=== PATIENT | female | born 1975 | race Caucasian/White ===

== ENCOUNTER 2020-11-14 15:42 | Emergency (ER) | payer SELFPAY ==
[~2020-11-14] VITALS: Ht 180.3 cm; Wt 142.9 kg
[2020-11-14 16:10] LABS: BASOPHILS ABSOLUTE AUTO 0.15 K/mm3 (0.00-0.23); BASOPHILS PERCENT AUTO 1 % (0-2); EOSINOPHILS ABSOLUTE AUTO 0.31 K/mm3 (0.00-0.68); EOSINOPHILS PERCENT AUTO 2 % (0-6); Hematocrit 49.3 % (33.0-51.0); Hemoglobin 17.3 g/dL (11.5-16.0); IMMATURE GRAN ABSOLUTE AUTO 0.08 K/mm3 (0.00-0.10); IMMATURE GRAN PERCENT AUTO 0 % (0-1); LYMPHOCYTES ABSOLUTE AUTO 3.95 K/mm3 (0.84-5.20); LYMPHOCYTES PERCENT AUTO 22 % (21-46); MONOCYTES ABSOLUTE AUTO 0.91 K/mm3 (0.16-1.47); MONOCYTES PERCENT AUTO 5 % (4-13); Mean Corpuscular HGB 32.6 pg (26.0-34.0); Mean Corpuscular HGB Conc 35.1 g/dL (31.5-36.5); Mean Corpuscular Volume 93 fL (80-100); Mean Platelet Volume 9.6 fL (9.1-12.4); NEUTROPHILS ABSOLUTE AUTO 12.76 K/mm3 (1.96-9.15); NEUTROPHILS PERCENT AUTO 70 % (41-73); Platelet Count 414 K/mm3 (150-400); RDW Coefficient Variation 13.1 % (11.7-14.2); RDW Standard Deviation 44.7 fL (35.1-46.3); Red Blood Cell Count 5.31 M/mm3 (3.80-5.20); White Blood Cell Count 18.16 K/mm3 (4.00-11.30)
[2020-11-14 16:34] LABS: Alanine Aminotransfer (ALT/SGP 80 U/L (12-78); Albumin, Blood 3.6 g/dL (3.4-5.0); Albumin/Globulin Ratio 0.8 (0.8-1.8); Alk Phos 140 U/L (50-136); Anion Gap 6 mmol/L (6-16); Aspartate Aminotrans (AST/SGOT 39 U/L (12-37); Bilirubin, Total 0.6 mg/dL (0.1-1.0); Blood Urea Nitrogen 11 mg/dL (8-24); Bun/Creatinine Ratio 14.9 (12.0-20.0); CO2, Blood 28 mmol/L (21-32); Calcium, Blood 9.9 mg/dL (8.5-10.1); Chloride, Blood 102 mmol/L (98-108); Creatinine, Blood 0.74 mg/dL (0.40-1.00); Globulin, Blood 4.6 g/dL (2.2-4.0); Glomerular Filtration Rate >60 (60-); Glucose, Blood 248 mg/dL (70-99); Potassium, Blood 3.7 mmol/L (3.5-5.5); Sodium, Blood 136 mmol/L (136-145); Total Protein, Blood 8.2 g/dL (6.4-8.2)
[2020-11-14] MEDS ORDERED: Zofran8 MG PO (22:44)
== END 2020-11-14 23:46 | disposition home or self-care (01) ==
LOC: ER 15:42
PROVIDERS: Emergency Medicine
DX: K29.70 Gastritis, unspecified, without bleeding (principal); K76.0 Fatty (change of) liver, not elsewhere classified; F17.200 Nicotine dependence, unspecified, uncomplicated
CPT/HCPCS: 74177; 80053; 83690; 85025; 93005; 93010; 96374-59; 96375; 99284-25; A9270; J2270; J2405; J2550; J7030; Q9967

== ENCOUNTER 2021-01-13 11:51 | Emergency (ER) | payer OTHER ==
[~2021-01-13] VITALS: Ht 180.3 cm; Wt 131.5 kg
[~2021-01-13 11:51] MED LIST: Zofran8 MG PO
[2021-01-13] MEDS ORDERED: OXYC5 PO (12:40)
[2021-01-13] MEDS ORDERED: Colace100 MG PO (12:40)
[2021-01-13 12:46] LABS: Source, Urine Clean Catch
[2021-01-13 12:57] LABS: Hematocrit 46.4 % (33.0-51.0); Hemoglobin 15.5 g/dL (11.5-16.0); Mean Corpuscular HGB 31.6 pg (26.0-34.0); Mean Corpuscular HGB Conc 33.4 g/dL (31.5-36.5); Mean Corpuscular Volume 95 fL (80-100); Mean Platelet Volume 9.4 fL (9.1-12.4); Platelet Count 491 K/mm3 (150-400); RDW Coefficient Variation 13.3 % (11.7-14.2); RDW Standard Deviation 46.8 fL (35.1-46.3); White Blood Cell Count 17.38 K/mm3 (4.00-11.30)
[2021-01-13 13:01] LABS: Appearance, Urine Hazy (Clear); Bilirubin, Urine Neg (Neg); Blood, Urine 1+ (Neg); Color, Urine Yellow (P-Yellow); Glucose Qualitative, Urine Neg (Neg); Ketones, Urine Neg (Neg); Leukocyte Esterase, Urine 1+ (Neg); Nitrite, Urine Neg (Neg); Protein, Urine 2+ (Neg); Urobilinogen, Urine NORM (Normal)
[2021-01-13 13:10] LABS: Alanine Aminotransfer (ALT/SGP 85 U/L (12-78); Albumin, Blood 3.1 g/dL (3.4-5.0); Albumin/Globulin Ratio 0.6 (0.8-1.8); Alk Phos 143 U/L (50-136); Anion Gap 7 mmol/L (6-16); Aspartate Aminotrans (AST/SGOT 62 U/L (12-37); Bilirubin, Total 0.4 mg/dL (0.1-1.0); Blood Urea Nitrogen 11 mg/dL (8-24); Bun/Creatinine Ratio 14.6 (12.0-20.0); CO2, Blood 24 mmol/L (21-32); Chloride, Blood 104 mmol/L (98-108); Creatinine, Blood 0.75 mg/dL (0.40-1.00); Globulin, Blood 4.8 g/dL (2.2-4.0); Glomerular Filtration Rate >60 (60-); Glucose, Blood 179 mg/dL (70-99); Potassium, Blood 3.7 mmol/L (3.5-5.5); Sodium, Blood 135 mmol/L (136-145); Total Protein, Blood 7.9 g/dL (6.4-8.2)
[2021-01-13 13:19] LABS: Bacteria Mod /hpf; Mucus Light (0-Heavy); Squamous Epithelial Cells Many /hpf (Few)
[2021-01-13 13:24] LABS: BASOPHILS ABSOLUTE MAN 0.17 K/mm3 (0.00-0.23); BASOPHILS PERCENT MAN 1 % (0-2); EOSINOPHILS ABSOLUTE MAN 1.21 K/mm3 (0.00-0.68); EOSINOPHILS PERCENT MAN 7 % (0-6); LYMPHOCYTES PERCENT MAN 34 % (21-46); MONOCYTES ABSOLUTE MAN 1.73 K/mm3 (0.16-1.47); MONOCYTES PERCENT MAN 10 % (4-13); NEUTROPHILS ABSOLUTE MAN 8.34 K/mm3 (1.96-9.15); SEG NEUTROPHILS PERCENT MAN 48 % (41-73); TOTAL CELLS COUNTED 100
[2021-01-13] MEDS ORDERED: ONDA4ODT MM (14:01)
[2021-01-19] MEDS ORDERED: PANT40 PO (19:27)
[2021-01-20] MEDS ORDERED: AMOCLA875 PO (13:07)
== END 2021-01-13 14:29 | disposition home or self-care (01) ==
LOC: ER 11:51
PROVIDERS: Physician Assistant
DX: R10.9 Unspecified abdominal pain (principal); R10.814 Left lower quadrant abdominal tenderness; R10.813 Right lower quadrant abdominal tenderness; K57.92 Diverticulitis of intestine, part unspecified, without perforation or abscess without bleeding; D72.829 Elevated white blood cell count, unspecified; Z91.040 Latex allergy status
CPT/HCPCS: 36415; 74177; 80053; 81001; 83690; 85025; 87086; 99284-25; Q9967

== ENCOUNTER 2022-10-07 13:12 | Emergency (ER) | payer BC ==
[~2022-10-07] VITALS: Ht 180.3 cm; Wt 136.1 kg
[~2022-10-07 13:12] MED LIST changes: +AMOCLA875 PO; +Colace100 MG PO; +METO10 PO; +ONDA4ODT MM; +OXYC5 PO; +PANT40 PO
[2022-10-07 13:59] LABS: BASOPHILS ABSOLUTE AUTO 0.22 K/mm3 (0.00-0.23); BASOPHILS PERCENT AUTO 1 % (0-2); EOSINOPHILS ABSOLUTE AUTO 0.28 K/mm3 (0.00-0.68); EOSINOPHILS PERCENT AUTO 1 % (0-6); Hematocrit 49.7 % (33.0-51.0); Hemoglobin 17.4 g/dL (11.5-16.0); IMMATURE GRAN ABSOLUTE AUTO 0.13 K/mm3 (0.00-0.10); IMMATURE GRAN PERCENT AUTO 1 % (0-1); LYMPHOCYTES ABSOLUTE AUTO 3.97 K/mm3 (0.84-5.20); LYMPHOCYTES PERCENT AUTO 18 % (21-46); MONOCYTES ABSOLUTE AUTO 0.68 K/mm3 (0.16-1.47); MONOCYTES PERCENT AUTO 3 % (4-13); Mean Corpuscular HGB 32.3 pg (26.0-34.0); Mean Corpuscular Volume 92 fL (80-100); Mean Platelet Volume 9.5 fL (9.1-12.4); NEUTROPHILS ABSOLUTE AUTO 16.84 K/mm3 (1.96-9.15); NEUTROPHILS PERCENT AUTO 76 % (41-73); Platelet Count 434 K/mm3 (150-400); RDW Standard Deviation 43.7 fL (35.1-46.3); Red Blood Cell Count 5.39 M/mm3 (3.80-5.20); White Blood Cell Count 22.12 K/mm3 (4.00-11.30)
[2022-10-07 14:16] LABS: Albumin, Blood 3.9 g/dL (3.4-5.0); Albumin/Globulin Ratio 0.9 (0.8-1.8); Bilirubin, Total 0.5 mg/dL (0.1-1.0); Bun/Creatinine Ratio 15.2 (12.0-20.0); Calcium, Blood 9.7 mg/dL (8.5-10.1); Creatinine, Blood 0.79 mg/dL (0.40-1.00); Globulin, Blood 4.2 g/dL (2.2-4.0); Potassium, Blood 4.2 mmol/L (3.5-5.5); Total Protein, Blood 8.1 g/dL (6.4-8.2)
[2022-10-07 16:49] LABS: Source, Urine Clean Catch
[2022-10-07 16:54] LABS: Appearance, Urine Clear (Clear); Bilirubin, Urine Neg (Neg); Blood, Urine 1+ (Neg); Color, Urine Yellow (P-Yellow); Glucose Qualitative, Urine 4+ (Neg); Ketones, Urine 4+ (Neg); Leukocyte Esterase, Urine Neg (Neg); Nitrite, Urine Neg (Neg); Protein, Urine 3+ (Neg); Specific Gravity, Urine 1.015 (1.003-1.022); Urobilinogen, Urine NORM (Normal)
[2022-10-07 17:14] LABS: Bacteria Few /hpf; Red Blood Cells, Urine 0-2 /hpf (0-2); Squamous Epithelial Cells Few /hpf (Few); White Blood Cells, Urine 0-2 /hpf (0-5)
[2022-10-07 19:00] VITALS: BP 173/114
[2022-10-07] MEDS ORDERED: PROC5 PO (19:35)
== END 2022-10-07 19:47 | disposition home or self-care (01) ==
LOC: ER 13:12
PROVIDERS: Student in an Organized Health Care Education/Training Program
DX: R10.9 Unspecified abdominal pain (principal); R11.2 Nausea with vomiting, unspecified; D72.829 Elevated white blood cell count, unspecified; Z91.040 Latex allergy status; Z87.891 Personal history of nicotine dependence
CPT/HCPCS: 71045; 74177; 80053; 81001; 81025; 83690; 85025; 93005; 93010; A9270; J0780; J1790; J1885; J2405; J2550; J3010; J7030; Q9967

== ENCOUNTER 2023-02-10 19:32 | Observation (INO) | payer BC ==
[~2023-02-10] VITALS: Ht 180.3 cm; Wt 147.5 kg
[~2023-02-10 19:32] MED LIST changes: +PROC5 PO
[2023-02-10 20:11] LABS: BASOPHILS ABSOLUTE AUTO 0.19 K/mm3 (0.00-0.23); BASOPHILS PERCENT AUTO 1 % (0-2); EOSINOPHILS PERCENT AUTO 4 % (0-6); Hematocrit 46.5 % (33.0-51.0); Hemoglobin 16.2 g/dL (11.5-16.0); IMMATURE GRAN ABSOLUTE AUTO 0.13 K/mm3 (0.00-0.10); IMMATURE GRAN PERCENT AUTO 1 % (0-1); LYMPHOCYTES ABSOLUTE AUTO 3.05 K/mm3 (0.84-5.20); LYMPHOCYTES PERCENT AUTO 18 % (21-46); MONOCYTES PERCENT AUTO 6 % (4-13); Mean Corpuscular HGB 32.3 pg (26.0-34.0); Mean Corpuscular HGB Conc 34.8 g/dL (31.5-36.5); Mean Corpuscular Volume 93 fL (80-100); Mean Platelet Volume 9.4 fL (9.1-12.4); NEUTROPHILS PERCENT AUTO 70 % (41-73); Platelet Count 441 K/mm3 (150-400); RDW Coefficient Variation 13.3 % (11.7-14.2); RDW Standard Deviation 44.9 fL (35.1-46.3); Red Blood Cell Count 5.02 M/mm3 (3.80-5.20); White Blood Cell Count 16.77 K/mm3 (4.00-11.30)
[2023-02-10 20:26] LABS: Albumin, Blood 3.4 g/dL (3.4-5.0); Albumin/Globulin Ratio 0.8 (0.8-1.8); Bilirubin, Total 0.3 mg/dL (0.1-1.0); Bun/Creatinine Ratio 13.2 (12.0-20.0); Calcium, Blood 8.6 mg/dL (8.5-10.1); Creatinine, Blood 0.83 mg/dL (0.40-1.00); Potassium, Blood 3.9 mmol/L (3.5-5.5); Total Protein, Blood 7.4 g/dL (6.4-8.2)
[2023-02-11 00:11] LABS: Anti-Xa UFH, PHA Monitoring <0.10 IU/mL; International Normalized Ratio 1.04; Prothrombin Time Results 10.9 Sec (9.7-11.5)
[2023-02-11] MEDS ORDERED: OMEP20ER PO (02:04)
[2023-02-11 02:17] VITALS: BP 111/69
--- NOTE | 2023-02-11 03:05 | NUR ---
NURSE NOTE LAB CALLED AT 0218 WITH TROPONIN RESULT OF 700. NOTIFIED AT 0306 AFTER AWAITING RETURN CALL. CONTINUE HEPARIN DRIP. PATIENT IS NPO FOR A STRESS TEST IN THE AM. PATIENT ALSO C/O MILD PRESSURE IN HER LEFT CHEST UNDERNEATH HER BREAST AREA WITH NO RADIATION. INFORMED AND AWARE. DR. STAHL NOTIFIED OF ABOVE.
[2023-02-11 04:29] LABS: Hemoglobin 14.6 g/dL (11.5-16.0); Mean Corpuscular HGB 32.2 pg (26.0-34.0); Mean Corpuscular HGB Conc 34.8 g/dL (31.5-36.5); Mean Corpuscular Volume 93 fL (80-100); Mean Platelet Volume 9.5 fL (9.1-12.4); Platelet Count 394 K/mm3 (150-400); RDW Coefficient Variation 13.4 % (11.7-14.2); RDW Standard Deviation 45.3 fL (35.1-46.3); Red Blood Cell Count 4.53 M/mm3 (3.80-5.20); White Blood Cell Count 20.35 K/mm3 (4.00-11.30)
[2023-02-11 05:10] LABS: Albumin, Blood 3.1 g/dL (3.4-5.0); Albumin/Globulin Ratio 0.9 (0.8-1.8); Bilirubin, Total 0.5 mg/dL (0.1-1.0); Bun/Creatinine Ratio 15.4 (12.0-20.0); Calcium, Blood 7.8 mg/dL (8.5-10.1); Creatinine, Blood 0.72 mg/dL (0.40-1.00); Globulin, Blood 3.3 g/dL (2.2-4.0); Potassium, Blood 3.8 mmol/L (3.5-5.5); Total Protein, Blood 6.4 g/dL (6.4-8.2)
[2023-02-11 05:24] LABS: CHOL/HDL RATIO 4.9; Cholesterol 178 mg/dL (50-200); HDL Cholesterol 36 mg/dL (>39); LDL/HDL RATIO 2.7; Low Density Lipoprotein Chol 98 mg/dL (0-110); Triglycerides 219 mg/dL (30-160); Very Low Density Lipoprot Chol 43 mg/dL (6-32)
[2023-02-11 05:38] LABS: BASOPHILS PERCENT MAN 0 % (0-2); EOSINOPHILS ABSOLUTE MAN 1.01 K/mm3 (0.00-0.68); EOSINOPHILS PERCENT MAN 5 % (0-6); LYMPHOCYTES % ATYPICAL MANUAL 1 % (0-0); LYMPHOCYTES ABSOLUTE MAN 7.52 K/mm3 (0.84-5.20); LYMPHOCYTES PERCENT MAN 36 % (21-46); MONOCYTES PERCENT MAN 2 % (4-13); NEUTROPHILS ABSOLUTE MAN 11.39 K/mm3 (1.96-9.15); SEG NEUTROPHILS PERCENT MAN 56 % (41-73); TOTAL CELLS COUNTED 100
--- NOTE | 2023-02-11 05:52 | NUR ---
NURSE NOTE: TROPONIN CAME BACK AT 988. DR. STAHL NOTIFIED AT 0528. NO NEW ORDERS.
--- NOTE | 2023-02-11 07:18 | NUR ---
NOC SHIFT SUMMARY: ADMITTED WTIH CHEST PAIN. TROPONIN TRENDING UPWARDS. HEPARIN DRIP IN PLACE. INDEPENENT. STRESS TEST AND ECHOCARDIOGRAM ORDERED FOR TODAY.
[2023-02-11 07:26] VITALS: BP 114/58
--- NOTE | 2023-02-11 12:32 | NUR ---
TRANSFER NOTE PT TAKEN TO THE [facility] FOR AN ANGIOGRAM, REPORT GIVEN TO PCU NURSE. HER TOOK HER BELONGINGS DOWN TO THE ROOM.
[2023-02-11 13:25] VITALS: BP 151/87
[2023-02-11 13:45] VITALS: BP 127/83
[2023-02-11 14:00] VITALS: BP 126/89
[2023-02-11] MEDS ORDERED: Nicoderm Cq1 EAC1 TOP (17:49)
[2023-02-11] MEDS ORDERED: ATOR40TA PO (17:49)
[2023-02-11] MEDS ORDERED: ASPI81CH PO (17:49)
--- NOTE | 2023-02-11 18:55 | NUR ---
TR BAND FULLY RECOVERED, DRESSING PLACED, ARM BOARD RETURNED. THERE WAS NO ACTIVE BLEEDING NOTED FROM SITE AT ANY TIME. FULL ROM OF FINGER TO RT HAND, SKIN PWD AND INTACT ASIDE FROM PUNCTURE SITE OF RADIAL ACCESS. SPO2 99% ON RIGHT HAND. DENIES PAIN NOW AFTER DEFLATION OF TR BAND BEGAN. PT WAS D/C HOME SHE EXPRESSED UNDERSTANDING OF DC TEACHING AND DENIES FURHTER NEEDS. IV REMOVED AND PRESSURE DRESSED.
[2023-02-15 08:09] LABS: HEMOGLOBIN A1C 7.3 % (4.8-5.6)
== END 2023-02-11 18:45 | disposition home or self-care (01) ==
LOC: ER 19:32 → MEDS 19:33 → PCU 02-11 13:04
PROVIDERS: Emergency Medicine; ADMIT Student in an Organized Health Care Education/Training Program
DX: I21.4 Non-ST elevation (NSTEMI) myocardial infarction (principal); E66.9 Obesity, unspecified; F17.210 Nicotine dependence, cigarettes, uncomplicated; Z91.040 Latex allergy status
CPT/HCPCS: 36415; 71046; 76937; 80053; 80061; 83036; 83690; 83735; 83880; 84443; 84484; 85025; 85520; 85610; 93005; 93010; 93306; 93458; 96365; 96366; 99152; 99285-25; A9270; C1769; C1887; C1894; G0378; J1644; J1650; J2250; J2405; J3010; J7030; J7050; Q9967

== ENCOUNTER 2023-11-22 10:39 | Emergency (ER) | payer BC ==
[~2023-11-22] VITALS: Ht 180.3 cm; Wt 142.9 kg
[~2023-11-22 10:39] MED LIST changes: +ASPI81CH PO; +ATOR40TA PO; +Nicoderm Cq1 EAC1 TOP; +OMEP20ER PO
[2023-11-22 10:43] VITALS: BP 134/113
[2023-11-22] MEDS ORDERED: Ondansetron HCl 2 MG / ML 2ML Vial IV ONE (10:45)
[2023-11-22 11:06] LABS: BASOPHILS ABSOLUTE AUTO 0.17 K/mm3 (0.00-0.23); BASOPHILS PERCENT AUTO 1 % (0-2); EOSINOPHILS ABSOLUTE AUTO 0.36 K/mm3 (0.00-0.68); EOSINOPHILS PERCENT AUTO 2 % (0-6); Hematocrit 45.5 % (33.0-51.0); Hemoglobin 15.6 g/dL (11.5-16.0); IMMATURE GRAN ABSOLUTE AUTO 0.06 K/mm3 (0.00-0.10); IMMATURE GRAN PERCENT AUTO 0 % (0-1); LYMPHOCYTES ABSOLUTE AUTO 3.35 K/mm3 (0.84-5.20); LYMPHOCYTES PERCENT AUTO 21 % (21-46); MONOCYTES ABSOLUTE AUTO 0.41 K/mm3 (0.16-1.47); MONOCYTES PERCENT AUTO 3 % (4-13); Mean Corpuscular HGB 32.1 pg (26.0-34.0); Mean Corpuscular HGB Conc 34.3 g/dL (31.5-36.5); Mean Corpuscular Volume 94 fL (80-100); Mean Platelet Volume 9.6 fL (9.1-12.4); NEUTROPHILS ABSOLUTE AUTO 11.74 K/mm3 (1.96-9.15); NEUTROPHILS PERCENT AUTO 73 % (41-73); Platelet Count 374 K/mm3 (150-400); RDW Coefficient Variation 13.3 % (11.7-14.2); RDW Standard Deviation 45.4 fL (35.1-46.3); Red Blood Cell Count 4.86 M/mm3 (3.80-5.20); White Blood Cell Count 16.09 K/mm3 (4.00-11.30)
[2023-11-22 11:27] LABS: Albumin, Blood 3.8 g/dL (3.4-5.0); Bilirubin, Total 0.6 mg/dL (0.1-1.0); Bun/Creatinine Ratio 24.1 (12.0-20.0); Calcium, Blood 9.1 mg/dL (8.5-10.1); Creatinine, Blood 0.79 mg/dL (0.40-1.00); Potassium, Blood 4.1 mmol/L (3.5-5.5); Total Protein, Blood 7.8 g/dL (6.4-8.2)
== END 2023-11-22 13:20 | disposition left against medical advice (07) ==
LOC: ER 10:39
PROVIDERS: Physician Assistant
DX: R10.9 Unspecified abdominal pain (principal); R07.9 Chest pain, unspecified; Z79.82 Long term (current) use of aspirin; Z79.899 Other long term (current) drug therapy; Z53.21 Procedure and treatment not carried out due to patient leaving prior to being seen by health care provider
CPT/HCPCS: 71046; 80053; 83690; 84484; 85025; 93005; 93010; 96374; 99282-25; J2405

== ENCOUNTER → 2024-09-19 | Outpatient (CLI) | payer BC | LOC: LAB 14:51 → LAB SHORT 14:51 | DX: D06.7 Carcinoma in situ of other parts of cervix (principal) | CPT/HCPCS: 88305 ==

== ENCOUNTER 2025-04-03 06:14 | Day surgery (SDC) | payer BC ==
[2025-04-03] VITALS (16 sets, daily range): BP systolic 110–148; BP diastolic 61–97
[~2025-04-03] VITALS: Ht 180.3 cm; Wt 149.6 kg
[~2025-04-03 06:14] MED LIST changes: +ALPR1 PO; +ATEN25 PO; +DOTTI1 EAC6 TD; +Glucophage 850850 MG PO; +IBUP800 PO; +LANS30EC PO; +PROG100 PO; +Prilosec Otc20 MG PO
[2025-04-03] MEDS ORDERED: CeFAZolin Sodium 3,000 MG in NS 100 ML IV SCH (06:15)
[2025-04-03] MEDS ORDERED: FentaNYL Citrate 50 MCG/ML 2 ML Injection ONE ×3 (06:50→09:37)
[2025-04-03] MEDS ORDERED: Midazolam HCl 1MG / ML 2ML Vial ONE (06:50)
[2025-04-03] MEDS ORDERED: CeFAZolin Sodium 3,000 MG VIAL ONE (07:07)
[2025-04-03] MEDS ORDERED: Bupivacaine 0.5% W/EPI 1:200000 SDV 30 ML Vial ONE (07:11)
--- NOTE | 2025-04-03 07:14 | NUR ---
History, Chart, Medications and Allergies reviewed before start of procedure. Lungs clear T/O to Auscultation. Patient confirms NPO status and agrees with scheduled surgery. Patient reports completing Chlorhexadine shower X2 prior to admission to hospital. Pre-Op teaching done. Pt verbalizes understanding.
[2025-04-03] MEDS ORDERED: Dexamethasone Sod Phos 10 MG/ML 1ML VIAL ONE (07:39)
[2025-04-03] MEDS ORDERED: Ondansetron HCl 2 MG / ML 2ML Vial ONE (07:39)
[2025-04-03] MEDS ORDERED: Ketorolac Tromethamine 30mg Vial ONE (07:39)
[2025-04-03] MEDS ORDERED: Labetalol HCL 5 MG/ML 4ML Injection (Single Dose) ONE (08:55)
[2025-04-03] MEDS ORDERED: FentaNYL Citrate 50 MCG/ML 2 ML Injection IV PRN ×2 (09:25)
[2025-04-03] MEDS ORDERED: HYDROmorphone HCl/Pf 1MG SYR IV PRN ×2 (09:25→09:55)
[2025-04-03] MEDS ORDERED: Ondansetron HCl 2 MG / ML 2ML Vial IV PRN ×2 (09:25→09:55)
[2025-04-03] MEDS ORDERED: Sugammadex Sodium 200 MG/2ML SDV (100 MG/ML) ONE (09:33)
[2025-04-03] MEDS ORDERED: FLU VACC TS2025-26(6MOS UP)/PF 45 MCG/0.5 ML SYRINGE IM SCH (09:50)
[2025-04-03] MEDS ORDERED: Metoclopramide HCl 5MG / ML 2ML Vial IV PRN (09:50)
[2025-04-03] MEDS ORDERED: Naloxone HCl 0.4MG / ML 1ML Vial IV PRN (09:55)
[2025-04-03] MEDS ORDERED: Ketorolac Tromethamine 30mg Vial IV PRN (10:05)
[2025-04-03] MEDS ORDERED: HYDROmorphone HCl/Pf 1MG SYR ONE (10:15)
[2025-04-03] MEDS ORDERED: Estradiol 0.025 MG/24 Patch TOP SCH (10:30)
--- NOTE | 2025-04-03 11:12 | NUR ---
POST OP S/P ROBOTIC TOTAL LAP HYSTER. A+O X4, BUT SLEEPY. PT REPORTS BLADDER DISCOMFORT, BUT DENIES PAIN. DERMABOND LAP SITES X4 TO ABD ARE CDI. NO VAGINAL BLEEDING NOTED CURRENTLY. POST OP VSS AND IN PROGRESS. PLACED ON 2L O2 VIA NC BECAUSE PT DESATTED TO 89% WHILE FALLING ASLEEP. ENCOURAGING DEEP BREATHING WHILE AWAKE AND PLAN TO WEAN O2 TOLERATED. OFFERING SIPS OF CLEARS AND CRACKERS. DENIES N/V. KPAD TO ABD FOR COMFORT. CALLED PT SPOUSE PER PT REQUEST TO UPDATE ON PT STATUS. ORIENTED TO ROOM AND TREATMENT PLAN. PT VERB AN UNDERSTANDING. CALL LIGHT WITHIN REACH.
[2025-04-03] MEDS ORDERED: OXAYDO5 M1 PO (13:57)
[2025-04-03] MEDS ORDERED: Acetaminophen650 M1 PO (13:57)
[2025-04-03] MEDS ORDERED: SIME80CH PO (13:58)
--- NOTE | 2025-04-03 17:29 | NUR ---
SHIFT SUMMARY S/P ROBOTIC TOTAL LAP HYSTERECTOMY. LAP SITES TO ABD X4 REMAIN UNCHANGED-CDI. ROXICODONE/TORADOL/KPAD FOR PAIN CONTROL. INDEP TO RESTROOM. VOIDING SPONTANEOUSLY WITHOUT DIFFICULTY. MINIMAL POST VOID RESIDUALS. PT HAS BEEN NAUSEATED THIS EVENING WITH X1 SMALL EMESIS. ZOFRAN/REGLAN PER ORDERS. POST OP VSS. USES CALL LIGHT APPROPRIATELY. AT BEDSIDE FOR SUPPORT. PT MAY OR MAY NOT DISCHARGE HOME LATER TONIGHT.
--- NOTE | 2025-04-03 19:03 | NUR ---
PT REPORTS NAUSEA RESOLVING. ATTEMPTING TO EAT PO. MEDICATED FOR PAIN. ENCOURAGING TO AMBULATE ONCE PAIN MEDICATION TAKES EFFECT.
[2025-04-04 00:36] VITALS: BP 117/71
--- NOTE | 2025-04-04 04:50 | NUR ---
SHIFT SUMMARY POD 1 S/P ROBOTIC LAP HYSTER WITH BILATERAL OOPHORECTOMY. PT A/OX4 WITH VSS. ABD INCISIONS X 4 CDI, CLOSED WITH DERMABOND. NO REDNESS OR DRAINAGE NOTED WITH INCISIONS. UCHE PO. DENIES N/V; MEDICATED X 1 FOR NAUSEA WITH PO PAIN MEDICATION ADMININSTRATION PRN. IND IN ROOM. VOIDING YELLOW URINE. NO VAGINAL BLEEDING T/O NIGHT. PAIN MANAGED PER EMAR. IV PATENT/SL. REF SCDS. PT CURRENTLY RESTING IN BED WITH EYES CLOSED, RESP EVEN, HAS CALL LIGHT IN REACH. PLAN FOR POSSIBLE D/C TODAY. WILL GIVE REPORT TO ONCOMING RN.
[2025-04-04 05:44] VITALS: BP 107/60
--- NOTE | 2025-04-04 06:33 | NUR ---
DISCHARGE INSTRUCTIONS DISCHARGE INSTRUCTIONS PROVIDED. PT VERBALIZED UNDERSTANDING. SIGNED DOC IN CHART. IV REMOVED. PT EAGER FOR DISCHARGE TODAY. MED PRN FOR PAIN. SNACKS AND FRESH ICE WATER PROVIDED. HAS ALL LIGHT IN REACH AND IND IN ROOM. DENIES NEEDS. PLANS TO GET DRESSED AND AMB IN HALLWAY. PT INSTRUCTED TO ALL FOR ASSITANCE PRN. WILL GIVE REPORT TO ONCOMING RN.
[2025-04-04 07:33] VITALS: BP 104/70
--- NOTE | 2025-04-04 08:33 | NUR ---
PATIENT DISCHARGED HOME WITH SPOUSE. ALL BELONGINGS IN PATIENT POSSESSION AT TIME OF DISCHARGE. PATIENT AMBULATED WITH SPOUSE INDEPENDENTLY. ENCOURAGED TO CALL IF ANY QUESTIONS ARISE.
== END 2025-04-04 07:40 | disposition home or self-care (01) ==
LOC: ORSCMMR 06:14 → ORD 07:30 → ORSCMMR 07:30 → SURS 10:30 → ORSCMMR 04-04 07:40
PROVIDERS: Obstetrics & Gynecology
PROC: 0UB24ZZ Excision of Bilateral Ovaries, Percutaneous Endoscopic Approach (ICD-10-PCS; principal; 2025-04-03 07:30)
PROC: 0UB74ZZ Excision of Bilateral Fallopian Tubes, Percutaneous Endoscopic Approach (ICD-10-PCS; principal; 2025-04-03 07:30)
PROC: 8E0W4CZ Robotic Assisted Procedure of Trunk Region, Percutaneous Endoscopic Approach (ICD-10-PCS; principal; 2025-04-03 07:30)
PROC: 0UT94ZZ Resection of Uterus, Percutaneous Endoscopic Approach (ICD-10-PCS; principal; 2025-04-03 07:30)
PROC: 0DNU4ZZ Release Omentum, Percutaneous Endoscopic Approach (ICD-10-PCS; principal; 2025-04-03 07:30)
DX: D06.9 Carcinoma in situ of cervix, unspecified (principal); I10 Essential (primary) hypertension; I25.10 Atherosclerotic heart disease of native coronary artery without angina pectoris; J44.9 Chronic obstructive pulmonary disease, unspecified; E11.9 Type 2 diabetes mellitus without complications; E66.9 Obesity, unspecified; Z68.42 Body mass index [BMI] 45.0-49.9, adult; Z79.82 Long term (current) use of aspirin; Z79.84 Long term (current) use of oral hypoglycemic drugs; Z79.899 Other long term (current) drug therapy; Z87.891 Personal history of nicotine dependence
CPT/HCPCS: 82947; 86850; 86900; 86901; 88307; 88342; A9270; J0690; J1100; J1171; J1885; J2250; J2405; J2704; J2765; J3010; J7120